=== PATIENT | male | born 1970 | race Caucasian/White ===

== ENCOUNTER 2017-11-15 13:01 | Emergency (ER) | payer OTHER ==
[2017-11-15 13:18] VITALS: RESP 18; TEMP 98.1
--- NOTE | 2017-11-15 14:42 | EDPHY ---
H & P Time Seen by Provider: 11/15/17 14:29 Smoking Status: Never smoked Constitutional: Initial Vital Signs Temperature (C) 36.7 C 11/15/17 13:16 Heart Rate 52 L 11/15/17 13:16 Respiratory Rate 18 11/15/17 13:16 Blood Pressure 116/78 11/15/17 13:16 O2 Sat (%) 98 11/15/17 13:16 O2 Delivery Mode Room Air Allergies/Adverse Reactions: No Known Allergies Allergy (Verified 01/26/14 18:53) Home Medications: Medication Instructions Recorded Clomid 01/26/14 MDM/Departure - Depart Condition: Good Referrals: NONE *PRIMARY CARE P,. [Primary Care Provider] - As per Instructions
--- NOTE | 2017-11-15 14:42 | EDPHY ---
H & P Smoking Status: Never smoked Time Seen by Provider: 11/15/17 14:29 HPI/ROS: CHIEF COMPLAINT: Left hand laceration HISTORY OF PRESENT ILLNESS: Patient is a 47-year-old male who presents emergency department after cutting his left thumb at 12:45 p.m. He was slicing a rick with a sharp knife. He denies any numbness or tingling. He has mild discomfort. He thinks a foreign body is unlikely. Denies any other injury. REVIEW OF SYSTEMS: Negative Past medical history: Noncontributory (Joanie Hendrickson) Physical Exam: General Appearance: Alert and no distress. Head: Pupils equal. Normal. Respiratory: No respiratory distress. Cardiac: regular rate and rhythm. Extremities: There is a 1 cm laceration at the base of his left thumb in the web space. There is no visible tendon or muscle injury. Patient is neurovascular intact distally. Skin: No rashes or lesions. Neuro: Alert. Normal mood and affect. (Joanie Hendrickson) Constitutional: Initial Vital Signs Temperature (C) 36.7 C 11/15/17 13:16 Heart Rate 52 L 11/15/17 13:16 Respiratory Rate 18 11/15/17 13:16 Blood Pressure 116/78 11/15/17 13:16 O2 Sat (%) 98 11/15/17 13:16 O2 Delivery Mode Room Air Allergies/Adverse Reactions: No Known Allergies Allergy (Verified 01/26/14 18:53) Home Medications: Medication Instructions Recorded Clomid 01/26/14 Medical Decision Making Procedures: Laceration repair. Verbal consent was obtained from the patient. The 2 cm laceration on the left hand was anesthetized using 1% lidocaine with epinephrine. The wound was irrigated with saline, draped and explored to its base with a gloved finger. There were no deep structures involved. No tendon injury was identified. The wound was repaired with 5 0 Ethilon, 6 sutures. The wound repair was simple. The procedure was performed by myself. (Maricruz Valentine) ED Course/Re-evaluation: In the emergency department I discussed possible etiologies with the patient. I answered all his questions. The wound was anesthetized, cleaned and repaired. Please refer the note by Maricruz Valentine. I gave patient warnings prior to leaving. He will return with worsening symptoms. He is given wound care instructions. The patient was evaluated and managed by the physician's medical library assistant. My cosignature indicates that I reviewed the chart and I agree with the findings and plan of care as documented. I am the secondary supervising physician. ( Joanie Hendrickson) Differential Diagnosis: My differential includes but is not limited to laceration, ligamentous injury, muscle injury, nerve injury, foreign body (Joanie Hendrickson) Departure - Departure Disposition: Home, Routine, Self-Care Clinical Impression: Hand laceration Qualifiers: Encounter type: initial encounter Foreign body presence: without foreign body Laterality: left Qualified Code(s): S61.412A - Laceration without foreign body of left hand, initial encounter Condition: Good Instructions: Laceration (ED) Additional Instructions: Wound Care Follow-Up: Removal of sutures in 6-7 days. Suture removal is complimentary in uncomplicated cases. Infection or abnormal findings would require reevaluation by the MD. In that case, you may be billed. Your given a tetanus shot today in the emergency department. Please document this for your records. Referrals: Chaya Tapia, DO [Doctor of Osteopathy] - 5-7 days, if not improved
[2017-11-15] MEDS ORDERED: TDAP ADULT 0.5 ML INJ (BOOSTRIX) IM ONE (14:49)
[2017-11-15 15:28] VITALS: BP 127/68; PULSE 48; O2SAT 96
== END 2017-11-15 15:28 | disposition home or self-care (01) ==
PROC: 0HQGXZZ Repair Left Hand Skin, External Approach (ICD-10-PCS; principal; 2017-11-15)
DX: S61.012A Laceration without foreign body of left thumb without damage to nail, initial encounter (principal); Z23 Encounter for immunization; W26.0XXA Contact with knife, initial encounter; Y93.89 Activity, other specified